=== PATIENT | male | born 1985 | race Hispanic/Latino ===

== ENCOUNTER 2022-08-27 16:16 | Inpatient (IN) | payer OTHER ==
[~2022-08-27] VITALS: Ht 180.3 cm; Wt 116.0 kg
[2022-08-27 17:55] LABS: BASOPHILS % (AUTO) 0.3 % (0.0-5.0); EOSINOPHILS % (AUTO) 0.1 % (0.0-8.0); HEMATOCRIT 41.1 % (42-54); LYMPHOCYTES % (AUTO) 7.8 % (21.0-51.0); MEAN CORPUSCULAR HGB CONC 32.8 g/dL (32.0-36.0); MEAN CORPUSCULAR VOLUME 85.1 fL (79-99); MONOCYTES % (AUTO) 8.8 % (3.0-13.0); NEUTROPHILS % (AUTO) 82.3 % (40.0-77.0); PLATELET COUNT (AUTO) 417 K/uL (130-400); RED BLOOD CELL COUNT(AUTO) 4.83 MIL/uL (4.50-6.20); RED CELL DISTRIBUTION WIDTH 12.1 % (11.0-15.5); WHITE BLOOD COUNT (AUTO) 23.7 K/uL (4.8-10.8)
[2022-08-27] MEDS ORDERED: 0.9%NACL 1000ML 1,000 ML IV ONE (18:00)
[2022-08-27] MEDS ORDERED: MORPHINE 4 MG SYG IVP ONE (18:00)
[2022-08-27] MEDS ORDERED: ONDANSETRON 4MG INJ IVP ONE (18:00)
[2022-08-27] MEDS ORDERED: 0.9%NACL 50ML IV SCH (18:00)
[2022-08-27 18:12] LABS: POTASSIUM 4.1 mmol/L (3.5-5.1)
[2022-08-27 18:17] LABS: ALBUMIN 3.1 g/dL (3.5-5.0); TOTAL PROTEIN, SERUM 8.9 g/dL (6.0-8.3)
[2022-08-27] MEDS ORDERED: IOHEXOL-350 75 ML VIAL IV ONE (20:06)
[2022-08-27] MEDS: ZOSYN 3.375GM +NS 50ML IVPB SCH (20:18)
[2022-08-27] MEDS ORDERED: KETOROLAC 15MG/ML VIAL (15MG/ML) IV ONE (21:00)
[2022-08-27 21:45] LABS: APPEARANCE,URINE CLEAR (CLEAR); BILIRUBIN,URINE NEGATIVE (NEGATIVE); COLOR,URINE LIGHT-YELLOW (YELLOW); GLUCOSE, URINE (UA) NEGATIVE (NEGATIVE); KETONES,URINE 10 mg/dL (NEGATIVE); LEUKOCYTE ESTERASE ,URINE NEGATIVE Leu/uL (NEGATIVE); NITRATE,URINE NEGATIVE (NEGATIVE); OCCULT BLOOD,URINE LARGE (NEGATIVE); PROTEIN,URINE 10 mg/dL (NEGATIVE); UROBILINOGEN,URINE 0.2 mg/dL (0.2-1.0)
[2022-08-27 21:48] LABS: BACTERIA,URINE RARE /HPF (None Seen); MUCUS,URINE RARE LPF (None Seen)
[2022-08-28] VITALS (20 sets, daily range): BP systolic 94–116; BP diastolic 47–62
[2022-08-28] MEDS ORDERED: VANCOMYCIN KIT 1 GM/250 ML IV.KIT IV ONE
[2022-08-28] MEDS ORDERED: ONDANSETRON 4MG INJ IV PRN (00:30)
[2022-08-28] MEDS ORDERED: ACETAMINOPHEN 325 MG SUPPOSITORY RC PRN ×2 (00:30)
[2022-08-28] MEDS ORDERED: MORPHINE 2 MG SYG IV PRN (00:30)
[2022-08-28] MEDS ORDERED: NITROGLYCERIN 0.4 MG SL TAB SL PRN (00:30)
[2022-08-28] MEDS: 0.9%NACL 1000ML 1,000 ML IV SCH ×3 (00:52→20:30)
[2022-08-28 01:17] LABS: AMPHET/METH SCREEN,URINE NEGATIVE (NEGATIVE); BARBITURATE SCREEN, URINE NEGATIVE (NEGATIVE); BENZODIAZEPINES SCREEN,URINE NEGATIVE (NEGATIVE); CANNABINOID SCREEN,URINE POSITIVE (NEGATIVE); COCAINE SCREEN,URINE NEGATIVE (NEGATIVE); OPIATE SCREEN,URINE NEGATIVE (NEGATIVE); PHENCYCLIDINE SCREEN,URINE NEGATIVE (NEGATIVE)
[2022-08-28 01:21] LABS: INR 1.3 (0.85-1.15)
[2022-08-28 01:23] LABS: PARTIAL THROMBOPLASTIN TIME 30.2 SEC (26.3-35.5)
[2022-08-28] MEDS ORDERED: VANCOMYCIN PROTOCOL PER PHARMACY IV SCH (02:00)
[2022-08-28] MEDS: ZOSYN 3.375GM +NS 50ML IVPB SCH ×3 (04:04→17:06)
[2022-08-28] MEDS ORDERED: ZOSYN 3.375GM+NS 50ML 50 ML IVPB SCH (05:00)
[2022-08-28 05:47] LABS: BASOPHILS % (AUTO) 0.3 % (0.0-5.0); EOSINOPHILS % (AUTO) 0.2 % (0.0-8.0); LYMPHOCYTES % (AUTO) 11.5 % (21.0-51.0); MEAN CORPUSCULAR HEMOGLOBIN 28.9 pg (27.0-33.0); MEAN CORPUSCULAR HGB CONC 33.3 g/dL (32.0-36.0); MEAN CORPUSCULAR VOLUME 86.7 fL (79-99); MONOCYTES % (AUTO) 10.9 % (3.0-13.0); NEUTROPHILS % (AUTO) 76.4 % (40.0-77.0); PLATELET COUNT (AUTO) 375 K/uL (130-400); RED BLOOD CELL COUNT(AUTO) 4.15 MIL/uL (4.50-6.20); RED CELL DISTRIBUTION WIDTH 12.2 % (11.0-15.5); WHITE BLOOD COUNT (AUTO) 25.4 K/uL (4.8-10.8)
[2022-08-28 06:02] LABS: HEMOGLOBIN A1C 5.7 % (4.0-6.0)
[2022-08-28 06:13] LABS: ALBUMIN 2.4 g/dL (3.5-5.0); CREATININE 0.9 mg/dL (0.5-1.5); MAGNESIUM 1.9 mg/dL (1.80-2.40); POTASSIUM 4.1 mmol/L (3.5-5.1); TOTAL PROTEIN, SERUM 7.6 g/dL (6.0-8.3)
[2022-08-28] MEDS: VANCOMYCIN 1.25 GM/250 ML BAG 250 ML IV SCH ×2 (08:03→21:31)
[2022-08-28] MEDS: FAMOTIDINE 20MG VIAL IV SCH ×2 (08:03→21:00)
[2022-08-28] MEDS: FLUCONAZOLE 200 MG/NS 100 ML 100 ML IV SCH (13:21)
[2022-08-28] MEDS: MORPHINE 4 MG SYG IVP PRN (13:59)
[2022-08-28] MEDS: KETOROLAC 15MG/ML VIAL (15MG/ML) IV PRN (17:36)
[2022-08-28] MEDS ORDERED: KETAMINE 50MG/ML SYRINGE 50 MG/ML DISP.SYRIN ONE (18:41)
[2022-08-28] MEDS ORDERED: SUCCINYLCHOLINE 200MG/10ML SYR ONE (18:43)
[2022-08-28] MEDS ORDERED: DEXAMETHASONE SOD PHOSPHATE 10MG/ML 1ML VIAL ONE (18:43)
[2022-08-28] MEDS ORDERED: LIDOCAINE PF 100MG/5ML (2%) SYRINGE 5ML ONE (18:43)
[2022-08-28] MEDS ORDERED: ONDANSETRON 4MG INJ ONE (18:43)
[2022-08-28] MEDS ORDERED: PROPOFOL 10 MG/ML 20ML VIAL IV ONE (18:44)
[2022-08-28] MEDS ORDERED: ROCURONIUM 10MG/1ML SYR 10 MG/ML ML ONE (18:44)
[2022-08-28] MEDS ORDERED: FENTANYL CITRATE PF 50 MCG/1 ML 5ML AMP IV ONE (18:44)
[2022-08-28] MEDS ORDERED: MIDAZOLAM HCL 1 MG/ML 2ML VIAL ONE (18:44)
[2022-08-28] MEDS ORDERED: EPHEDRINE SULFATE 50 MG/ML AMPULE ONE (19:37)
[2022-08-28] MEDS ORDERED: GENTAMICIN SULFATE 80 MG/2 ML VIAL ONE (20:05)
[2022-08-28] MEDS ORDERED: SUGAMMADEX SODIUM 200 MG/2 ML VIAL IV ONE (20:21)
[2022-08-28] MEDS ORDERED: MEPERIDINE-PF 25 MG/ML SYG ONE ×2 (20:26)
[2022-08-28] MEDS ORDERED: ACETAMINOPHEN 1,000 MG/100 ML VIAL IV ONE (21:00)
[2022-08-28] MEDS ORDERED: VANCOMYCIN 1G/250ML KIT 250 ML IV ONE ×2 (21:07)
[2022-08-28] MEDS ORDERED: ONDANSETRON 4MG TABLET PO PRN (23:30)
[2022-08-29] VITALS (8 sets, daily range): BP systolic 93–115; BP diastolic 51–70
[2022-08-29] MEDS: ZOSYN 3.375GM +NS 50ML IVPB SCH ×3 (01:11→17:19)
[2022-08-29] MEDS: KETOROLAC 15MG/ML VIAL (15MG/ML) IV PRN ×2 (04:25→14:06)
[2022-08-29 04:31] LABS: BASOPHILS % (AUTO) 0.2 % (0.0-5.0); EOSINOPHILS % (AUTO) 0.2 % (0.0-8.0); HEMATOCRIT 36.6 % (42-54); LYMPHOCYTES % (AUTO) 6.1 % (21.0-51.0); MEAN CORPUSCULAR HEMOGLOBIN 28.9 pg (27.0-33.0); MEAN CORPUSCULAR HGB CONC 32.2 g/dL (32.0-36.0); MEAN CORPUSCULAR VOLUME 89.5 fL (79-99); MONOCYTES % (AUTO) 4.6 % (3.0-13.0); NEUTROPHILS % (AUTO) 87.7 % (40.0-77.0); PLATELET COUNT (AUTO) 330 K/uL (130-400); RED BLOOD CELL COUNT(AUTO) 4.09 MIL/uL (4.50-6.20); RED CELL DISTRIBUTION WIDTH 12.2 % (11.0-15.5); WHITE BLOOD COUNT (AUTO) 24.4 K/uL (4.8-10.8)
[2022-08-29 04:41] LABS: CREATININE 0.9 mg/dL (0.5-1.5); POTASSIUM 4.7 mmol/L (3.5-5.1)
[2022-08-29] MEDS: 0.9%NACL 1000ML 1,000 ML IV SCH ×2 (06:25→12:13)
[2022-08-29] MEDS: FAMOTIDINE 20MG VIAL IV SCH ×2 (09:35→21:36)
[2022-08-29] MEDS: MORPHINE 4 MG SYG IVP PRN ×3 (09:36→16:02)
[2022-08-29] MEDS: VANCOMYCIN 1.25 GM/250 ML BAG 250 ML IV SCH (09:59)
[2022-08-29] MEDS: FLUCONAZOLE 200 MG/NS 100 ML 100 ML IV SCH (12:13)
[2022-08-29] MEDS ORDERED: SIMETHICONE 80 MG TAB.CHEW PO SCH (14:30)
[2022-08-29] MEDS: VANCOMYCIN 1.5 GM/250 ML BAG 250 ML IV SCH (21:35)
[2022-08-29] MEDS: SIMETHICONE 80 MG TAB.CHEW PO SCH (21:36)
[2022-08-30] MEDS: ZOSYN 3.375GM +NS 50ML IVPB SCH ×3 (01:54→17:36)
[2022-08-30] MEDS: KETOROLAC 15MG/ML VIAL (15MG/ML) IV PRN (01:55)
[2022-08-30] MEDS: TRAMADOL HCL 50 MG TABLET PO PRN (03:36)
[2022-08-30 04:03] VITALS: BP 134/82
[2022-08-30 06:02] LABS: BASOPHILS % (AUTO) 0.1 % (0.0-5.0); HEMATOCRIT 36.5 % (42-54); LYMPHOCYTES % (AUTO) 9.4 % (21.0-51.0); MEAN CORPUSCULAR HEMOGLOBIN 28.6 pg (27.0-33.0); MEAN CORPUSCULAR HGB CONC 32.6 g/dL (32.0-36.0); MEAN CORPUSCULAR VOLUME 87.7 fL (79-99); MONOCYTES % (AUTO) 6.1 % (3.0-13.0); NEUTROPHILS % (AUTO) 83.4 % (40.0-77.0); PLATELET COUNT (AUTO) 401 K/uL (130-400); RED BLOOD CELL COUNT(AUTO) 4.16 MIL/uL (4.50-6.20)
[2022-08-30 06:43] LABS: ALBUMIN 2.1 g/dL (3.5-5.0); CREATININE 0.9 mg/dL (0.5-1.5); MAGNESIUM 2.1 mg/dL (1.80-2.40); TOTAL PROTEIN, SERUM 7.3 g/dL (6.0-8.3)
[2022-08-30] MEDS: 0.9%NACL 1000ML 1,000 ML IV SCH ×3 (07:32→22:30)
[2022-08-30] MEDS: FAMOTIDINE 20MG VIAL IV SCH ×2 (08:46→20:09)
[2022-08-30] MEDS: SIMETHICONE 80 MG TAB.CHEW PO SCH ×4 (08:46→21:00)
[2022-08-30 08:59] VITALS: BP 122/79
[2022-08-30] MEDS: VANCOMYCIN 1.5 GM/250 ML BAG 250 ML IV SCH ×2 (09:17→20:09)
[2022-08-30] MEDS: MORPHINE 4 MG SYG IVP PRN (09:59)
[2022-08-30 12:53] VITALS: BP 117/67
[2022-08-30] MEDS: FLUCONAZOLE 200 MG/NS 100 ML 100 ML IV SCH (13:33)
[2022-08-30 16:30] VITALS: BP 127/75
[2022-08-30 20:00] VITALS: BP 128/61
[2022-08-30 23:25] VITALS: BP 130/69
[2022-08-31] MEDS: ZOSYN 3.375GM +NS 50ML IVPB SCH ×3 (01:56→18:02)
[2022-08-31 04:00] VITALS: BP 128/64
[2022-08-31 08:00] VITALS: BP 125/74
[2022-08-31 08:55] LABS: BASOPHILS % (AUTO) 0.2 % (0.0-5.0); EOSINOPHILS % (AUTO) 0.2 % (0.0-8.0); HEMATOCRIT 35.5 % (42-54); LYMPHOCYTES % (AUTO) 14.5 % (21.0-51.0); MEAN CORPUSCULAR HEMOGLOBIN 28.6 pg (27.0-33.0); MEAN CORPUSCULAR HGB CONC 32.7 g/dL (32.0-36.0); MEAN CORPUSCULAR VOLUME 87.4 fL (79-99); MONOCYTES % (AUTO) 9.7 % (3.0-13.0); NEUTROPHILS % (AUTO) 74.4 % (40.0-77.0); PLATELET COUNT (AUTO) 402 K/uL (130-400); RED BLOOD CELL COUNT(AUTO) 4.06 MIL/uL (4.50-6.20); RED CELL DISTRIBUTION WIDTH 12.3 % (11.0-15.5); WHITE BLOOD COUNT (AUTO) 17.3 K/uL (4.8-10.8)
[2022-08-31 09:16] LABS: CREATININE 1.1 mg/dL (0.5-1.5); MAGNESIUM 2.1 mg/dL (1.80-2.40); PHOSPHORUS 4.1 mg/dL (2.5-4.9); POTASSIUM 3.5 mmol/L (3.5-5.1)
[2022-08-31] MEDS: SIMETHICONE 80 MG TAB.CHEW PO SCH ×3 (09:35→20:39)
[2022-08-31] MEDS: FAMOTIDINE 20MG VIAL IV SCH ×2 (09:35→20:39)
[2022-08-31] MEDS: VANCOMYCIN 1.5 GM/250 ML BAG 250 ML IV SCH (10:23)
[2022-08-31 11:56] VITALS: BP 128/73
[2022-08-31] MEDS: 0.9%NACL 1000ML 1,000 ML IV SCH ×2 (12:43→20:40)
[2022-08-31] MEDS: FLUCONAZOLE 200 MG/NS 100 ML 100 ML IV SCH (12:43)
[2022-08-31 16:00] VITALS: BP 118/70
[2022-08-31 19:50] VITALS: BP 136/85
[2022-08-31] MEDS: TRAMADOL HCL 50 MG TABLET PO PRN (20:39)
[2022-09-01] VITALS (7 sets, daily range): BP systolic 123–139; BP diastolic 65–88
[2022-09-01] MEDS: ZOSYN 3.375GM +NS 50ML IVPB SCH ×3 (01:30→17:57)
[2022-09-01] MEDS: TRAMADOL HCL 50 MG TABLET PO PRN (01:48)
[2022-09-01] MEDS: 0.9%NACL 1000ML 1,000 ML IV SCH ×2 (04:30→13:19)
[2022-09-01 05:17] LABS: BASOPHILS % (AUTO) 0.4 % (0.0-5.0); EOSINOPHILS % (AUTO) 1.5 % (0.0-8.0); HEMATOCRIT 35.3 % (42-54); LYMPHOCYTES % (AUTO) 21.2 % (21.0-51.0); MEAN CORPUSCULAR HEMOGLOBIN 28.4 pg (27.0-33.0); MEAN CORPUSCULAR HGB CONC 32.9 g/dL (32.0-36.0); MEAN CORPUSCULAR VOLUME 86.3 fL (79-99); NEUTROPHILS % (AUTO) 65.6 % (40.0-77.0); PLATELET COUNT (AUTO) 418 K/uL (130-400); RED BLOOD CELL COUNT(AUTO) 4.09 MIL/uL (4.50-6.20); RED CELL DISTRIBUTION WIDTH 12.2 % (11.0-15.5); WHITE BLOOD COUNT (AUTO) 16.3 K/uL (4.8-10.8)
[2022-09-01 05:47] LABS: CREATININE 0.9 mg/dL (0.5-1.5); POTASSIUM 3.3 mmol/L (3.5-5.1)
[2022-09-01] MEDS ORDERED: POTASSIUM CHLORIDE 10% ELIXIR 20 MEQ/15 ML UDCUP PO PRN (09:30)
[2022-09-01] MEDS ORDERED: POTASSIUM CHLORIDE 20MEQ/100ML 100 ML IV PRN (09:30)
[2022-09-01] MEDS: SIMETHICONE 80 MG TAB.CHEW PO SCH ×3 (10:12→21:00)
[2022-09-01] MEDS: FAMOTIDINE 20MG VIAL IV SCH ×2 (10:12→20:48)
[2022-09-01] MEDS: KCL 20 MEQ ERTAB PO PRN ×3 (10:13→17:58)
[2022-09-01] MEDS: FLUCONAZOLE 200 MG/NS 100 ML 100 ML IV SCH (12:29)
[2022-09-02] MEDS: ZOSYN 3.375GM +NS 50ML IVPB SCH ×2 (01:16→09:34)
[2022-09-02] MEDS: 0.9%NACL 1000ML 1,000 ML IV SCH ×2 (01:16→12:05)
[2022-09-02 04:05] VITALS: BP 125/74
[2022-09-02 04:34] LABS: BASOPHILS % (AUTO) 0.6 % (0.0-5.0); EOSINOPHILS % (AUTO) 3.2 % (0.0-8.0); HEMATOCRIT 35.1 % (42-54); MEAN CORPUSCULAR HEMOGLOBIN 28.3 pg (27.0-33.0); MEAN CORPUSCULAR HGB CONC 32.2 g/dL (32.0-36.0); MEAN CORPUSCULAR VOLUME 87.8 fL (79-99); MONOCYTES % (AUTO) 9.4 % (3.0-13.0); PLATELET COUNT (AUTO) 452 K/uL (130-400); RED CELL DISTRIBUTION WIDTH 12.2 % (11.0-15.5); WHITE BLOOD COUNT (AUTO) 16.2 K/uL (4.8-10.8)
[2022-09-02 04:50] LABS: POTASSIUM 3.6 mmol/L (3.5-5.1)
[2022-09-02] MEDS: KCL 20 MEQ ERTAB PO PRN ×2 (05:47→09:30)
[2022-09-02 08:00] VITALS: BP 124/89
[2022-09-02] MEDS: SIMETHICONE 80 MG TAB.CHEW PO SCH ×2 (09:00→13:17)
[2022-09-02] MEDS: FAMOTIDINE 20MG VIAL IV SCH (09:30)
[2022-09-02 11:57] VITALS: BP 121/78
[2022-09-02] MEDS: FLUCONAZOLE 200 MG/NS 100 ML 100 ML IV SCH (15:14)
[2022-09-02 16:00] VITALS: BP 137/78
== END 2022-09-02 20:50 | disposition home or self-care (01) | DRG 853 ==
LOC: EDH 16:16 → EDHIP 16:17 → 2DH 08-28 21:55 → 3AH 08-30 23:32
PROVIDERS: ADMIT Family Medicine; ATTEND Family Medicine
PROC: 0JB83ZZ Excision of Abdomen Subcutaneous Tissue and Fascia, Percutaneous Approach (ICD-10-PCS; 2022-08-28)
PROC: 0W9F0ZZ Drainage of Abdominal Wall, Open Approach (ICD-10-PCS; principal; 2022-08-28 18:53)
PROC: 0W9G3ZZ Drainage of Peritoneal Cavity, Percutaneous Approach (ICD-10-PCS; 2022-08-28 18:53)
DX: A41.9 Sepsis, unspecified organism (principal); K65.1 Peritoneal abscess; E87.1 Hypo-osmolality and hyponatremia; Z20.822 Contact with and (suspected) exposure to COVID-19; K57.20 Diverticulitis of large intestine with perforation and abscess without bleeding; L03.311 Cellulitis of abdominal wall; B96.20 Unspecified Escherichia coli [E. coli] as the cause of diseases classified elsewhere; E66.09 Other obesity due to excess calories; E86.1 Hypovolemia; I10 Essential (primary) hypertension; K66.0 Peritoneal adhesions (postprocedural) (postinfection); Z83.3 Family history of diabetes mellitus; Z82.49 Family history of ischemic heart disease and other diseases of the circulatory system; Z80.0 Family history of malignant neoplasm of digestive organs; Z68.35 Body mass index [BMI] 35.0-35.9, adult
CPT/HCPCS: 36415; 71045; 74176; 80048; 80053; 80202; 80305; 81001; 83036; 83605; 83690; 83735; 84100; 84145; 85025; 85610; 85651; 85730; 86140; 87040; 87070; 87076; 87077; 87186; 87205; 87635; 87804; 87880; 97039; C9803; G0378; J0330; J1100; J1450; J1580; J1885; J2001; J2175; J2250; J2270; J2405; J2543; J2704; J3010; J3370; J3490; J7030; Q9967